=== PATIENT | male | born 1995 | race African-American/Black ===

== ENCOUNTER 2023-10-30 23:37 | Emergency (ER) | payer OTHER ==
[~2023-10-30] VITALS: Ht 182.9 cm; Wt 95.5 kg
[2023-10-30 23:42] VITALS: TEMP 98
[2023-10-31] MEDS: OxyCODONE HCL/ACETAMINOPHEN 5-325 MG TABLET PO ONE (01:32)
[2023-10-31] MEDS ORDERED: IBUP-1492 PO (01:32)
[2023-10-31] MEDS: IBUPROFEN 600 MG TABLET PO ONE (01:33)
[2023-10-31 01:42] VITALS: BP 128/72; PULSE 72; RESP 16
== END 2023-10-31 01:43 | disposition home or self-care (01) ==
LOC: EMS 23:38
DX: S40.012A Contusion of left shoulder, initial encounter (principal); F12.90 Cannabis use, unspecified, uncomplicated; X58.XXXA Exposure to other specified factors, initial encounter; Y93.67 Activity, basketball; Y92.89 Other specified places as the place of occurrence of the external cause; Y99.8 Other external cause status
CPT/HCPCS: 99283